=== PATIENT | female | born 1970 | race Caucasian/White ===

== ENCOUNTER 2017-05-29 08:31 | Day surgery (SDC) | payer OTHER ==
[~2017-05-29 08:31] MED LIST: BUPIVACAINE 0.25%/EPI (MDV) 50 ML VIAL INJ; CEFAZOLIN 1 GM INJ; CEFAZOLIN 1 GM/50 ML (PMX) 50 ML IVPB; ONDANSETRON 4 MG INJ; SOD CHLORIDE 0.9% 1,000 ML IV
[2017-05-29] MEDS ORDERED: ROCURONIUM 50 MG INJ (10:52)
[2017-05-29] MEDS ORDERED: LIDOCAINE 2% (SDV) 5 ML INJ (10:52)
[2017-05-29] MEDS ORDERED: PROPOFOL 100 ML (10:52)
[2017-05-29] MEDS ORDERED: FENTAnyl 50 MCG/ML VIAL IV ×3 (11:00)
[2017-05-29] MEDS ORDERED: ALBUTEROL 0.083% (NEB) 2.5 MG/3 ML AMP HHN (11:00)
[2017-05-29] MEDS ORDERED: ONDANSETRON 4 MG INJ IV (11:00)
[2017-05-29] MEDS ORDERED: METOCLOPRAMIDE 10 MG INJ IV (11:00)
[2017-05-29] MEDS ORDERED: KETOROLAC 30 MG INJ IV (11:00)
[2017-05-29] MEDS ORDERED: LABETALOL HCL 20MG INJ IV (11:00)
[2017-05-29] MEDS ORDERED: OXYCODONE/ACETAMINOPHEN (5/325) TAB PO ×2 (11:00)
[2017-05-29] MEDS ORDERED: HYDROmorphONE (0.2 MG/ML) 10ML SYG IV ×3 (11:00)
[2017-05-29] MEDS ORDERED: MEPERIDINE 25 MG INJ IV (11:00)
[2017-05-29] MEDS ORDERED: EPHEDrine SULFATE 50 MG/5 ML SYG IV (11:00)
[2017-05-29] MEDS ORDERED: hydrALAzine 20 MG INJ IV (11:00)
[2017-05-29] MEDS ORDERED: DEXAMETHASONE 4 MG/ML 1 ML INJ (11:29)
[2017-05-29] MEDS ORDERED: BUPIVACAINE 0.5% (SDV) 30 ML INJ (11:30)
[2017-05-29] MEDS ORDERED: SUGAMMADEX SODIUM 200 MG/2 ML VIAL IV (11:39)
[2017-05-29] MEDS: DIPHENHYDRAMINE 50 MG INJ IV (12:08)
== END 2017-05-29 15:11 | disposition home or self-care (01) ==
LOC: SDS 08:31
DX: D05.11 Intraductal carcinoma in situ of right breast (principal)
CPT/HCPCS: 19120; 84703; 88307

== ENCOUNTER 2017-07-10 07:43 | Day surgery (SDC) | payer OTHER ==
[~2017-07-10 07:43] MED LIST changes: -BUPIVACAINE 0.25%/EPI (MDV) 50 ML VIAL INJ; -CEFAZOLIN 1 GM INJ; -CEFAZOLIN 1 GM/50 ML (PMX) 50 ML IVPB; +CEFAZOLIN 2 GM/50 ML (PMX) 50 ML IVPB; -ONDANSETRON 4 MG INJ
[2017-07-10 09:42] LABS: ADD MAN DIFF? NO
[2017-07-10 09:46] LABS: WHITE BLOOD COUNT 5.9 10^3/ul (4.8-10.8)
[2017-07-10 09:46] LABS: BASOPHIL # 0.1 10^3/ul (0.0-0.1); BASOPHILS % 0.8 % (0.0-2.0); EOSINOPHILS # 0.1 10^3/ul (0.0-0.5); EOSINOPHILS % 2.2 % (0.0-7.0); HEMATOCRIT 37.6 % (37.0-47.0); HEMOGLOBIN 12.7 g/dl (12.0-16.0); LYMPHOCYTES # 1.7 10^3/ul (0.8-2.9); LYMPHOCYTES % 29.1 % (15.0-51.0); MEAN CORPUSCULAR HEMOGLOBIN 28.9 pg (29.0-33.0); MEAN CORPUSCULAR HGB CONC 33.8 g/dl (32.0-37.0); MEAN CORPUSCULAR VOLUME 85.5 fl (82.0-101.0); MEAN PLATELET VOLUME 10.4 fl (7.4-10.4); MONOCYTE # 0.5 10^3/ul (0.3-0.9); MONOCYTES % 7.7 % (0.0-11.0); NEUTROPHIL # 3.6 10^3/ul (1.6-7.5); NEUTROPHILS % 59.9 % (39.0-77.0); PLATELET COUNT 264 10^3/UL (140-415); RED CELL DISTRIBUTION WIDTH 12.8 % (11.5-14.5)
[2017-07-10 10:06] LABS: ALANINE AMINOTRANSFERASE 23 IU/L (13-69); ALBUMIN 4.8 g/dl (3.3-4.9); ALBUMIN/GLOBULIN RATIO 1.65; ALKALINE PHOSPHATASE 56 IU/L (42-121); ANION GAP 14 (8-16); ASPARTATE AMINO TRANSFERASE 28 IU/L (15-46); BILIRUBIN,INDIRECT 1.4 mg/dl (0-1.1); BILIRUBIN,TOTAL 1.4 mg/dl (0.2-1.3); CARBON DIOXIDE 26 mmol/L (21-31); CHLORIDE 106 mmol/L (97-110); GLUCOSE 79 mg/dl (70-220); TOTAL PROTEIN 7.7 g/dl (6.1-8.1)
[2017-07-10 10:09] LABS: BLOOD UREA NITROGEN 18 mg/dl (7-20); CALCIUM 9.3 mg/dl (8.4-10.2); CREATININE 0.72 mg/dl (0.44-1.00); POTASSIUM 4.2 mmol/L (3.5-5.1); SODIUM 142 mmol/L (135-144)
[2017-07-10] MEDS ORDERED: PROPOFOL 20 ML ×2 (10:14→11:49)
[2017-07-10] MEDS ORDERED: MIDAZOLAM 1 MG/ML 2 ML INJ ×2 (10:14→11:50)
[2017-07-10 10:15] LABS: INR 1.01; PARTIAL THROMBOPLASTIN TIME 31.9 Sec (25.0-35.0); PROTIME 13.4 Sec (11.9-14.9)
[2017-07-10] MEDS ORDERED: CEFAZOLIN 1 GM INJ ×2 (10:28→11:17)
[2017-07-10] MEDS ORDERED: ONDANSETRON 4 MG INJ (10:29)
[2017-07-10] MEDS ORDERED: DEXAMETHASONE 4 MG/ML 1 ML INJ (10:29)
[2017-07-10] MEDS ORDERED: HYDROmorphONE (0.2 MG/ML) 10ML SYG IV (11:30)
[2017-07-10] MEDS ORDERED: PROVENTIL HFA 6.7GM INHALER (11:48)
[2017-07-10] MEDS ORDERED: LIDOCAINE 1% (MDV) 20 ML INJ (11:50)
== END 2017-07-10 13:30 | disposition home or self-care (01) ==
LOC: SDS 07:43
DX: N64.1 Fat necrosis of breast (principal); N60.31 Fibrosclerosis of right breast; Z85.3 Personal history of malignant neoplasm of breast
CPT/HCPCS: 19301; 71045; 80053; 84703; 85025; 85610; 85730; 88307; 93005